=== PATIENT | female | born 1985 | race Two or more races ===

== ENCOUNTER 2016-11-27 12:09 | Emergency (ER) | payer OTHER ==
[2016-11-27] MEDS ORDERED: ONDANSETRON 4 MG/2ML 2 ML VIAL ONE ×2 (14:23→18:28)
[2016-11-27] MEDS ORDERED: KETOROLAC TROMETHAMINE 30 MG/ML 1 ML VIAL ONE (14:23)
[2016-11-27] MEDS ORDERED: PANTOPRAZOLE SODIUM 40 MG VIAL IV ONE (18:28)
[2016-11-27] MEDS ORDERED: MORPHINE SULFATE 4 MG/ML SYRINGE ONE (18:28)
[2016-11-27] MEDS ORDERED: SODIUM CHLORIDE 0.9% 1,000 ML ONE (18:28)
== END 2016-11-27 12:56 | disposition home or self-care (01) ==
LOC: ED 12:09
DX: O03.9 Complete or unspecified spontaneous abortion without complication (principal)